=== PATIENT | male | born 1940 | race Caucasian/White ===

== ENCOUNTER → 2016-10-17 | Outpatient (CLI) | payer MEDICARE ==
[~2016-10-17] VITALS: Ht 170.2 cm; Wt 80.7 kg
[~2016-10-17] MED LIST: GEMF600T PO; LOVA20TA2 PO; NS 1,000 ML IV ONE; PROPOFOL 200 MG/20 ML VIAL As Ordered ONE; aspirin OR
--- NOTE | 2016-10-17 07:49 | ROOR ---
Patient Name: Pepe Harmon Procedure Date: 10/17/2016 7:28 AM Date of : 1940 Age: 75 Room: [facility] Gender: Male Note Status: Finalized Procedure: Colonoscopy Indications: Pelvic pain, Abdominal pain in the right lower quadrant Providers: Terry MANUEL MD Referring MD: EVERARDO CHONG MD Requesting Provider: Medicines: Monitored Anesthesia Care Complications: No immediate complications. Procedure: Pre-Anesthesia Assessment: - The heart rate, respiratory rate, oxygen saturations, blood pressure, adequacy of pulmonary ventilation, and response to care were monitored throughout the procedure. The Colonoscope was introduced through the anus and advanced to 10 cm into the ileum. The colonoscopy was performed without difficulty. The patient tolerated the procedure well. The quality of the bowel preparation was good. Findings: The perianal exam findings include skin tags. (Exam: Complete, Prep: Good or Excellent.) The terminal ileum appeared normal. Multiple medium-mouthed diverticula were found in the sigmoid colon and descending colon. The exam was otherwise normal throughout the examined colon. Impression: - Perianal skin tags found on perianal exam. - The examined portion of the ileum was normal. - Moderate diverticulosis in the sigmoid colon and in the descending colon. - Moderate internal hemorrhoids. - The colon is otherwise normal throughout. - (The findings above are unremarkable/incidental. Cause for pain is not determined on this exam) - No specimens collected. Recommendation: - Use fiber, for example Citrucel, Fibercon, Konsyl or Metamucil. - Patient has a contact number available for emergencies. The signs and symptoms of potential delayed complications were discussed with the patient. Return to normal activities tomorrow. Written discharge instructions were provided to the patient. Terry Manuel MD Terry MANUEL MD 10/17/2016 7:49:39 AM This report has been signed electronically. Number of Addenda: 0 Note Initiated On: 10/17/2016 7:28 AM Estimated Blood Loss: Estimated blood loss: none.
[2016-10-17 08:00] VITALS: BP 134/81
== END | disposition home or self-care (01) ==
LOC: M OPP 06:25
PROVIDERS: ATTEND Internal Medicine Gastroenterology
DX: R10.31 Right lower quadrant pain (principal); R10.2 Pelvic and perineal pain; K57.30 Diverticulosis of large intestine without perforation or abscess without bleeding; K64.4 Residual hemorrhoidal skin tags; K64.8 Other hemorrhoids; E78.5 Hyperlipidemia, unspecified; R12 Heartburn; R06.83 Snoring; Z79.82 Long term (current) use of aspirin; Z79.899 Other long term (current) drug therapy; Z80.0 Family history of malignant neoplasm of digestive organs; Z80.1 Family history of malignant neoplasm of trachea, bronchus and lung

== ENCOUNTER → 2017-01-08 | Outpatient (REF) | payer MEDICARE ==
[~2017-01-08] MED LIST changes: -NS 1,000 ML IV ONE; -PROPOFOL 200 MG/20 ML VIAL As Ordered ONE
== END ==
LOC: M SMT 16:51
PROVIDERS: ATTEND Nurse Practitioner Women's Health
DX: R97.20 Elevated prostate specific antigen [PSA] (principal); Z79.82 Long term (current) use of aspirin; Z79.899 Other long term (current) drug therapy
CPT/HCPCS: 81001; 87086; G0463

== ENCOUNTER → 2017-02-20 | Outpatient (CLI) | payer MEDICARE ==
--- NOTE | 2017-02-20 13:13 | REP ---
Prostate sonography: History: Elevated PSA Sonographic findings: Trans rectal prostate sonography demonstrates unremarkable seminal vesicles. Prostate gland is heterogeneously enlarged with calcifications and cystic changes noted. Glandular dimensions are measured at 4.0 x 3.1 x 4.8 cm with a calculated glandular volume of 30.4 ml. Transrectal sonographic guidance provided to Dr. Mcallister who performed trans rectal ultrasound guided needle biopsy procedure . Signed by Beto Greene MD 02/20/2017 01:04 P
== END ==
LOC: M SMT PRO 08:37
PROVIDERS: ATTEND Urology
DX: C61 Malignant neoplasm of prostate (principal)
CPT/HCPCS: 55700; 76872; 76942; G0416

== ENCOUNTER → 2017-05-15 | Outpatient (CLI) | payer MEDICARE ==
--- NOTE | 2017-05-15 13:18 | REP ---
Transrectal prostate sonography: History: Carcinoma. Findings: Transrectal prostate ultrasound guidance is provided Dr. Mcallister who placed fiducial markers. Signed by Beto Greene MD 05/15/2017 02:45 P
== END ==
LOC: M SMT PRO 10:52
PROVIDERS: ATTEND Urology
DX: C61 Malignant neoplasm of prostate (principal)
CPT/HCPCS: 55876; 76872; A4648

== ENCOUNTER → 2017-08-17 | Outpatient (CLI) | payer MEDICARE ==
[2017-08-17 17:54] LABS: PROSTATIC SPECIFIC AG MONITOR 3.04 NG/ML (< 4.0)
[2017-08-17 19:00] LABS: APPEARANCE, URINE HAZY (CLEAR); BACTERIA, URINE AUTO NEGATIVE (NEGATIVE); BILIRUBIN, URINE AUTO NEGATIVE (NEGATIVE); BLOOD, URINE BLOOD NEGATIVE (NEGATIVE); COLOR, URINE YELLOW (YELLOW); GLUCOSE, URINE (UA) AUTO NEGATIVE (NEGATIVE); KETONE, URINE AUTO NEGATIVE (NEGATIVE); LEUKOCYTE ESTERASE, URINE AUTO NEGATIVE (NEGATIVE); MUCUS, URINE SMALL (NEGATIVE); NITRITE, URINE AUTO NEGATIVE (NEGATIVE); PROTEIN, URINE AUTO NEGATIVE (NEGATIVE); RBC, URINE AUTO 2 /HPF (0-3); SPECIFIC GRAVITY URINE AUTO 1.023 (1.002-1.035); SQUAMOUS EPITHELIAL CELL UR AU 0 /HPF (0-6); WBC, URINE AUTO 0 /HPF (0-3)
== END ==
LOC: M SMT 12:06
DX: Z85.46 Personal history of malignant neoplasm of prostate (principal); Z79.82 Long term (current) use of aspirin; Z79.899 Other long term (current) drug therapy
CPT/HCPCS: 84153